=== PATIENT | male | born 1950 | race Caucasian/White ===

== ENCOUNTER 2022-09-18 14:29 | Inpatient (IN) | payer OTHER ==
[2022-09-18] MEDS ORDERED: Acetaminophen 650 MG Suppository PR PRN (16:28)
[2022-09-18] MEDS ORDERED: Acetaminophen 325 MG TAB PO PRN (16:28)
[2022-09-18] MEDS ORDERED: Senokot S 8.6-50 MG TAB PO PRN (16:28)
[2022-09-18] MEDS ORDERED: Sodium Chloride 0.9% 1,000 ML IV SCH ×2 (16:30→17:17)
[2022-09-18] MEDS ORDERED: Electrolyte Replacement Protocol 1 EACH FS SCH (17:15)
[2022-09-18 17:23] VITALS: BMI 30.5
[2022-09-18 18:25] LABS: Anion Gap 12 mmol/L (10-20); BUN (Urea Nitrogen) 24 mg/dL (8.4-25.7); Calc. Creatinine Clearance 58 mL/min (70-130); Calcium 9.5 mg/dL (7.8-10.44); Carbon Dioxide 18 mmol/L (23-31); Chloride 112 mmol/L (98-107); Estimated GFR 47; Glucose 170 mg/dL (83-110); Potassium 4.2 mmol/L (3.5-5.1); Sodium 138 mmol/L (136-145)
[2022-09-18] MEDS ORDERED: Lactated Ringer's 1,000 ML IV SCH (19:15)
[2022-09-18] MEDS ORDERED: Rosuvastatin 20 MG TAB PO SCH (21:00)
[2022-09-19 06:01] LABS: ALT (SGPT) 22 U/L (8-55); AST (SGOT) 15 U/L (5-34); Albumin 4.3 g/dL (3.4-4.8); Alkaline Phosphatase 107 U/L (40-110); Anion Gap 13 mmol/L (10-20); BUN (Urea Nitrogen) 21 mg/dL (8.4-25.7); Bilirubin, Total 0.8 mg/dL (0.2-1.2); Calc. Creatinine Clearance 66 mL/min (70-130); Calcium 10.2 mg/dL (7.8-10.44); Carbon Dioxide 21 mmol/L (23-31); Cardiac Risk 2.1 (Less than 4.5); Chloride 115 mmol/L (98-107); Cholesterol 101 mg/dl (< 200 Desired); Estimated GFR 56; Globulin 2.6 g/dL (2.4-3.5); Glucose 121 mg/dL (83-110); HDL Cholesterol 49 mg/dL (>60 Neg Risk); LDL Cholesterol, Calculated 35 mg/dL; Magnesium 2.3 mg/dL (1.6-2.6); Potassium 4.7 mmol/L (3.5-5.1); Protein, Total 6.9 g/dL (5.8-8.1); Sodium 144 mmol/L (136-145); Triglycerides 85 mg/dL (Less than 150)
[2022-09-19 06:18] LABS: #Basophils 0.1 10x3/uL (0.0-0.2); #Eosinphils 0.4 10x3/uL (0.0-0.5); #Monocytes 0.9 10x3/uL (0.0-1.1); #Neutrophils 6.8 10x3/uL (1.5-8.4); %Basophils 0.7 % (0.0-2.0); %Eosinophils 3.7 % (0.0-6.0); %Lymphocytes 13.4 % (18.0-47.0); %Monocytes 9.5 % (0.0-10.0); %Neutrophils 72.5 % (40.0-75.0); Hemoglobin 12.9 g/dL (13.5-17.5); Mean Corpuscular HGB CONC 32.7 g/dL (32.0-36.0); Mean Corpuscular Hemoglobin 30.1 pg (27.0-33.0); Mean Corpuscular Volume 92.3 fl (81.2-95.1); Mean Platelet Volume 11.3 fl (7.4-10.4); Platelet Count 221 10x3/uL (150-450); RBC Distribution Width 12.9 % (11.5-14.5); Red Blood Cell (RBC) Count 4.28 10x6/uL (4.32-5.72); White Blood Cell (WBC) Count 9.4 10x3/uL (3.5-10.5)
[2022-09-19] MEDS ORDERED: Lorazepam 2 MG/ML VIAL SLOW IVP SCH (10:00)
[2022-09-19] MEDS: Aspirin 81 mg Enteric Coated Tablet PO SCH (11:15)
[2022-09-19] MEDS: Thiamine 100 MG TAB PO SCH (11:15)
[2022-09-19] MEDS: Folic Acid 1 MG TAB PO SCH (11:15)
[2022-09-19] MEDS: Rosuvastatin 20 MG TAB PO SCH (11:15)
[2022-09-19] MEDS: Multivit, Therapeutic 1 TAB PO SCH (11:15)
[2022-09-19 23:27] LABS: Hemoglobin A1c 5.7 % (4.0-6.0)
[2022-09-20] MEDS ORDERED: Lorazepam 2 MG/ML VIAL SLOW IVP SCH (05:45)
[2022-09-20] MEDS: Multivit, Therapeutic 1 TAB PO SCH (08:09)
[2022-09-20] MEDS: Folic Acid 1 MG TAB PO SCH (08:09)
[2022-09-20] MEDS: Rosuvastatin 20 MG TAB PO SCH (08:09)
[2022-09-20] MEDS: Aspirin 81 mg Enteric Coated Tablet PO SCH (08:09)
[2022-09-20] MEDS: Thiamine 100 MG TAB PO SCH (08:09)
[2022-09-20] MEDS ORDERED: QUEtiapine 100 MG TAB PO SCH ×2 (10:00→21:00)
[2022-09-20] MEDS ORDERED: Lithium Carbonate ER 450 mg Tablet PO SCH ×2 (10:00→16:00)
[2022-09-20] MEDS: Sodium Chloride 0.9% 1,000 ML IV SCH (14:20)
[2022-09-20] MEDS: busPIRone HCl 5 MG TAB PO SCH (20:50)
[2022-09-21 00:01] LABS: Bilirubin Neg (Negative); Blood, Urine Negative (Negative); Clarity Clear (Clear); Glucose, Urine (Dipstick) Normal (Negative); Ketone, Urine Negative (Negative); Leukocyte Negative (Negative); Nitrite Negative (Negative); Protein, Urine (Dipstick) Negative (Neg-Trace); Specific Gravity, Urine 1.005 (1.005-1.030); Urobilinogen Normal mg/dL (Less than 2)
[2022-09-21 00:08] LABS: Bacteria/HPF None Seen HPF (None Seen); RBC/HPF None Seen HPF (0-3); Squamous Epithelial None Seen HPF (0-3); WBC/HPF None Seen HPF (0-3)
[2022-09-21] MEDS: Sodium Chloride 0.9% 1,000 ML IV SCH (02:27)
[2022-09-21] MEDS ORDERED: Ferrous Sulfate 325 MG TAB PO SCH (08:00)
[2022-09-21] MEDS: busPIRone HCl 5 MG TAB PO SCH (08:23)
[2022-09-21] MEDS: Multivit, Therapeutic 1 TAB PO SCH (08:24)
[2022-09-21] MEDS: Thiamine 100 MG TAB PO SCH (08:24)
[2022-09-21] MEDS: Rosuvastatin 20 MG TAB PO SCH (08:24)
[2022-09-21] MEDS: Aspirin 81 mg Enteric Coated Tablet PO SCH (08:24)
[2022-09-21] MEDS: Folic Acid 1 MG TAB PO SCH (08:24)
[2022-09-21] MEDS ORDERED: Ascorbic Acid 500 mg Chewable Tablet PO SCH (09:00)
[2022-09-21] MEDS ORDERED: Lithium Carbonate ER 450 mg Tablet PO SCH (09:00)
[2022-09-21] MEDS ORDERED: Fish Oil 1,000 MG CAP PO SCH (09:00)
[2022-09-21 10:21] VITALS: TEMP 98.2
[2022-09-21 11:26] VITALS: BP 164/97
== END 2022-09-21 14:15 | disposition home health service (06) | DRG 71 ==
LOC: CSHTELE 14:29 → CSHIMCU 09-19 09:19
PROVIDERS: ADMIT Emergency Medicine; ATTEND Emergency Medicine
DX: G93.41 Metabolic encephalopathy (principal); N17.9 Acute kidney failure, unspecified; E78.5 Hyperlipidemia, unspecified; I25.10 Atherosclerotic heart disease of native coronary artery without angina pectoris; G47.33 Obstructive sleep apnea (adult) (pediatric); F41.9 Anxiety disorder, unspecified; F31.9 Bipolar disorder, unspecified; N18.9 Chronic kidney disease, unspecified; E86.0 Dehydration; M54.12 Radiculopathy, cervical region; G89.29 Other chronic pain; M54.50 Low back pain, unspecified; Z79.899 Other long term (current) drug therapy; Z95.5 Presence of coronary angioplasty implant and graft; Z98.84 Bariatric surgery status; Z87.01 Personal history of pneumonia (recurrent); Z87.442 Personal history of urinary calculi; Z82.49 Family history of ischemic heart disease and other diseases of the circulatory system; Z87.891 Personal history of nicotine dependence
CPT/HCPCS: 36415; 70551; 80048; 80053; 80061; 81001; 82140; 83036; 83735; 83880; 84425; 84484; 85025; 87086; 93005; 93010; 94660; 94760; 94762; J2060; J7050